=== PATIENT | male | born 1960 | race Caucasian/White ===

== ENCOUNTER 2022-05-27 05:29 | Outpatient (CLI) | payer BC ==
[~2022-05-27] VITALS: Ht 177.8 cm; Wt 95.4 kg
[2022-05-28] MEDS ORDERED: ATOR40TA70 PO (14:47)
[2022-05-28] MEDS ORDERED: HYDR25TA4 PO (14:47)
== END 2022-05-28 14:50 | disposition home or self-care (01) ==
LOC: PREOP 05:29
PROVIDERS: ATTEND Specialist
DX: Z01.818 Encounter for other preprocedural examination (principal)

== ENCOUNTER 2022-05-31 06:11 | Day surgery (SDC) | payer BC ==
[~2022-05-31] VITALS: Ht 177.8 cm; Wt 95.4 kg
[~2022-05-31 06:11] MED LIST: ATOR40TA70 PO; HYDR25TA4 PO
[2022-05-31] MEDS ORDERED: TIMOLOL MALEATE 0.5% 5 ML (TIMOPTIC) BTL OU PRN (06:30)
[2022-05-31] MEDS ORDERED: POVIDONE (BETADINE) OPHTH SOLN 5% 30 ML OP ONE (06:30)
[2022-05-31] MEDS ORDERED: MOXIFLOXACIN OPHTH SOLN 5 MG/ML 0.3 ML SYRINGE OP ONE (06:30)
[2022-05-31] MEDS: TETRACAINE 0.5% OPHTH SOLN 4 ML BTL (SINGLE DOSE ONLY) OU PRN ×4 (06:32→06:50)
[2022-05-31] MEDS: PHENYLEPHRINE 10% OPHTH (NEO-SYN) 5 ML BTL OU SCH ×3 (06:39→06:50)
[2022-05-31] MEDS: TROPICAMIDE 1% OPH SOLN (MYDRIACYL) 15 ML BTL OP SCH ×3 (06:39→06:50)
[2022-05-31 06:43] VITALS: BP 132/87
--- NOTE | 2022-05-31 06:51 | Ophthalmologist Pre-Op Note ---
Pre-Operative Progress Note H&P Reviewed The H&P was reviewed, patient examined and no changes noted. Date H&P Reviewed: May 31, 2022 Time H&P Reviewed: 06:51 Pre-Op Dx Cataract, Left Eye JORDI KOHLI MD May 31, 2022 06:51
[2022-05-31] MEDS ORDERED: MIDAZOLAM 2 MG/2 ML (VERSED) VIAL ONE (07:21)
[2022-05-31] MEDS ORDERED: CARBACHOL 1.5 ML (MIOSTAT) VIAL IO ONE (07:34)
[2022-05-31 07:42] VITALS: BP 146/94
--- NOTE | 2022-05-31 07:42 | Ophthalmology Operative Report ---
Cataract removal/placement IOL PREOPERATIVE DIAGNOSIS: Cataract Left Eye POSTOPERATIVE DIAGNOSIS: Cataract Left Eye PROCEDURE: Cataract removal and placement of posterior chamber implant, left eye SURGEON: Rajendra Kohli ANESTHESIA: Topical with sedation COMPLICATIONS: Anterior Capsule tear ESTIMATED BLOOD LOSS: Minimal DESCRIPTION OF PROCEDURE: After proper informed consent was obtained, the patient, a 62 male, was taken to the Operating Room and the left eye was anesthetized with tetracaine. The left eye was then prepped and draped in the usual manner. A wire lid speculum was placed. A paracentesis was made at the left hand position. Preservative free lidocaine was injected into the anterior chamber followed by viscoelastic. A clear corneal incision was made in the temporal position. A capsulorrhexis was preformed and the central nuclear and cortical material were removed. The posterior capsule was polished and an Pankaj 17.0 MA60AC was placed into the sulcus. The residual viscoelastic was aspirated and balanced saline solution was injected into the anterior chamber. Moxifloxacin was injected into the anterior chamber. The wound was checked and found to be water tight. The patient tolerated the procedure well without complications. RAJENDRA KOHLI MD May 31, 2022 07:42
[2022-05-31] MEDS ORDERED: acetaZOLAMIDE ER 500 MG CAP (DIAMOX SEQUELS) PO ONE (09:00)
--- NOTE | 2022-05-31 14:01 | Anesthesia-General Post-Op ---
MAC Patient Condition Mental Status/LOC: Same as Preop Cardiovascular: Satisfactory Nausea/Vomiting: Absent Respiratory: Satisfactory Pain: Controlled Complications: Absent Post Op Complications Complications None Follow Up Care/Instructions Patient Instructions None needed. Anesthesiology Discharge Order Discharge Order Patient is doing well, no complaints, stable vital signs, no apparent adverse anesthesia problems. No complications reported per nursing. YESENIA RITCHIE CRNA May 31, 2022 14:01
== END 2022-05-31 07:44 | disposition home or self-care (01) ==
LOC: SDC 06:11
PROVIDERS: ATTEND Specialist
DX: H25.9 Unspecified age-related cataract (principal)
CPT/HCPCS: 66984; V2632